=== PATIENT | male | born 1985 | race Caucasian/White ===

== ENCOUNTER → 2017-01-03 | Day surgery (SDC) | payer OTHER ==
[~2017-01-03] VITALS: Ht 182.9 cm; Wt 77.1 kg
[2017-01-03] VITALS (9 sets, daily range): BP systolic 115–141; BP diastolic 67–91
[~2017-01-03] MED LIST: Bacitracin 50000 Units Vial ONE; Bupivacaine w/Epi 0.25% 30ml Vial INJ ONE; D5 1/2NS 1,000 ML IV SCH; DiphenhydrAMINE 50mg/ml Inj IVP PRN; HYDROmorphone 1mg/ml Carpuject SUBQ PRN; Hydromorphone 0.5mg/0.5ml inj IVP PRN; Ketorolac 30mg Inj IV PRN; Ketorolac 30mg Inj ONE; LR 1000ml 1,000 ML IVLG SCH; LR 1000ml ONE; Meperidine 25mg/ml Inj IV PRN; Metoclopramide 10mg/2ml Inj IVP PRN; Midazolam 2mg/2ml Inj IVP PRN; Midazolam 2mg/2ml Inj ONE; NICOTINE PATCH1 EAC5 TD; NS Irrig 1000ml ONE; Norco 5mg/325mg tab ORAL PRN; Propofol 10mg/ml 20ml IV ONE; Ropivacaine 5mg/ml Vial 20ml INJ ONE; Sterile Water Irrig 1000ml IRRIG ONE; Tylenol #3 tab (300mg/30mg) ORAL PRN; ceFAZolin 1gm/50ml Premix 50 ML IV ONE; ceFAZolin sod 1gm in NS 55ml IVPB ONE; celeBREX 200mg Cap **SURGERY PATIENTS ONLY ORAL ONE; fentaNYL 100 mcg/2 mL IV ONE; oxyCONTIN 20mg tab ORAL ONE
--- NOTE | 2017-01-03 07:52 | Pre-Procedure Note/Attestation ---
Pre-Procedure Note/Attestation Complete Prior to Procedure Planned Procedure: left Procedure Narrative: removal of tibia nail Indications for Procedure Pre-Operative Diagnosis: painful hardware left tibia Attestation I attest that I discussed the nature of the procedure; its benefits; risks and complications; and alternatives (and the risks and benefits of such alternatives ), prior to the procedure, with the patient (or the patient's legal claim service representative). I attest that, if there was a reasonable possibility of needing a blood transfusion, the patient (or the patient's legal claim service representative) was given the [facility] standardized written summary, pursuant to the Edvin Darryn Blood Safety Act ([place] Health and Safety Code # 1645, as amended). I attest that I re-evaluated the patient just prior to the surgery and that there has been no change in the patient's H&P, except as documented below: COLTON SHEIKH Jan 03, 2017 07:52
--- NOTE | 2017-01-03 07:53 | Operative Note - PDOC ---
Operative Note Operative Note Pre-op Diagnosis: painful hardware left tibia Procedure: removal of tibia nail Post-op Diagnosis: same as pre-op plus Operative Findings: consistent w/pre-op dx studies Anesthesia: MAC Specimen: none Complications: none Condition: stable Estimated Blood Loss: none Implant(s) used?: COLTON Hernandez Jan 03, 2017 07:53
--- NOTE | 2017-01-03 16:16 | Anethesia Preoperative Eval ---
Anesthesia Pre-op PMH/ROS General Date of Evaluation: Jan 03, 2017 Time of Evaluation: 15:10 Anesthesiologist: Patsy ASA Score: ASA 2 Mallampati Score Class I : Soft palate, uvula, fauces, pillars visible Class II: Soft palate, uvula, fauces visible Class III: Soft palate, base of uvula visible Class IV: Only hard plate visible Mallampati Classification: Class II Surgeon: Efren Diagnosis: Painfull hardwear L tibia Surgical Procedure: Removal of L tibial nail Anesthesia History: none Social History: current smoker, alcohol use - occ., drug use - methamfetamin Family History: no anesthesia problems Allergies: Coded Allergies: No Known Allergies (Unverified , 01/02/17) Medications: see eMAR Past Medical History Cardiovascular: Denies: CAD, HTN, DC, arrhythmia, other, valve dz Pulmonary: Denies: COPD, SAM, asthma, other Gastrointestinal/Genitourinary: Reports: GERD, Denies: CRI, ESRD, other Neurologic/Psychiatric: Reports: depression/anxiety, Denies: CVA, TIA, dementia, other Endocrine: Denies: DM, hypothyroidism, other, steroids HEENT: Denies: BLACKFEET (L), BLACKFEET (R), cataract (L), cataract (R), glaucoma, other Hematology/Immune: Denies: DVT, anemia, bleeding disorder, other Musculoskeletal/Integumentary: Denies: DDD, DJD, OA, RA, edema, other PMH Narrative: as above PSxH Narrative: Bilateral feet correction Sx. ORIF L tibial Fx. Anesthesia Pre-op Phys. Exam Physician Exam Last Vital Signs Date Time Temp Pulse Resp B/P Pulse Ox O2 Delivery O2 Flow Rate FiO2 01/03/17 11:36 98.3 112 18 141/91 97 Room Air Constitutional: NAD Neurologic: CN 2-12 intact Cardiovascular: RRR, no M/R/G Respiratory: CTA Gastrointestinal: S/NT/ND Airway Exam Mallampati Score: Class II MO: full Neck: flexible ROM: full Teeth: intact Dentures: no lower, no upper Anesthesia Pre-op A/P Labs see chart Studies Pre-op Studies: EKG - NSR Risk Assessment & Plan Assessment: ASA 2 Plan: GA with LMA L femoral nerve block for p/op pain control Status Change Before Surgery: No Pre-Antibiotics Drug: Ancef 1 gr. Given Within 1 Hr of Incision: Yes Time Given: 15:56 EBONI SKINNER M.D. Jan 03, 2017 16:16
--- NOTE | 2017-01-03 16:54 | Immediate Post-Op Evaluation ---
Immediate Post-Op Evalulation Immediate Post-Op Evalulation Procedure: L tibial nail removal Date of Evaluation: Jan 03, 2017 Time of Evaluation: 16:53 IV Fluids: 1000 Blood Products: none Estimated Blood Loss: min Urinary Output: none Blood Pressure Systolic: 116 Blood Pressure Diastolic: 53 Pulse Rate: 98 Respiratory Rate: 22 O2 Sat by Pulse Oximetry: 99 Temperature (Fahrenheit): 97.7 Pain Score (1-10): 2 Nausea: No Vomiting: No Complications none Patient Status: reacts, patent, none Hydration Status: adequate EBONI SKINNER M.D. Jan 03, 2017 16:54
--- NOTE | 2017-01-03 17:08 | 48 Hour Post Anesthesia Eval ---
Post Anesthesia Evaluation Procedure: L tibial nail removal Date of Evaluation: Jan 03, 2017 Time of Evaluation: 17:07 Blood Pressure Systolic: 118 0: 67 Pulse Rate: 86 Respiratory Rate: 24 Temperature (Fahrenheit): 97.6 O2 Sat by Pulse Oximetry: 99 Airway: patent Nausea: No Vomiting: No Pain Intensity: 3 Hydration Status: adequate Cardiopulmonary Status: stable Mental Status/LOC: patient returned to baseline Follow-up Care/Observations: n/a Post-Anesthesia Complications: none Follow-up care needed: ready to discharge EBONI SKINNER M.D. Jan 03, 2017 17:08
--- NOTE | 2017-01-04 02:38 | Operative Note - Dictated ---
DATE OF OPERATION: 01/03/2017 PREOPERATIVE DIAGNOSES: 1. Status post open reduction and internal fixation of left tibial shaft fracture. 2. Painful left tibial hardware. POSTOPERATIVE DIAGNOSES: 1. Status post open reduction and internal fixation of left tibial shaft fracture. 2. Painful left tibial hardware. PROCEDURES: Removal of left tibial nail and multiple locking screws. SURGEON: Haroon Schwartz M.D. ANESTHESIA: General. INDICATION FOR PROCEDURE: The patient is a pleasant gentleman, who underwent open reduction and internal fixation of left tibial shaft fracture. He has some anterior knee pain and there is some knee pain along the distal locking and proximal locking screws. He elected to remove the hardware. Risks, limitations, expectations, and complications of the procedure were discussed in detail including continued pain, need for future surgery, risk of anesthesia, and medical complications. DESCRIPTION OF PROCEDURE: An informed consent was obtained. The patient was brought in to the operative room and placed under general anesthesia. A femoral adductor block was placed. The patient was turned to the left proximal thigh. Left leg was prepped and draped in a sterile manner. Time-out was performed. Distal medial skin incision was made and distal femur was removed. At this point, the proximal screws were identified and 2 to 3 proximal screws were removed. Once that was done, medial skin incision was then made. The split along the patella time-out was performed. Proximal tibial nail was visualized. The tibial nail extractor was then placed and the tibial nail was then extracted along with 3 proximal locking screws. Once that was done, the knee was copiously irrigated. The arthrotomy sites were closed with 0 Vicryl, 2-0 Vicryl, and 3-0 Monocryl sutures. Percutaneous sites where the screws were removed finally closed with 3-0 Monocryl sutures. Compression dressing was applied. The patient was awoken and taken to the recovery room with stable signs. ESTIMATED BLOOD LOSS: Minimal. COMPLICATIONS: None. SPECIMENS: None. IMPLANTS: tibial nail and 4 distal locking screws. Haroon Schwartz M.D. DR: JAVIER JOB#: [id number] CC:
--- NOTE | 2017-01-04 09:22 | Diagnostic Imaging Report ---
Indication: PAIN, status post tibial hardware removal Technique: Digital intraoperative images Comparison: None Findings: Intraoperative images demonstrate surgical hardware within the proximal tibia and healed midshaft fracture Impression: Intraoperative imaging, as described
== END | disposition home or self-care (01) ==
LOC: SUR 07:10
DX: Z47.2 Encounter for removal of internal fixation device (principal); K21.9 Gastro-esophageal reflux disease without esophagitis; F32.9 Major depressive disorder, single episode, unspecified; F41.9 Anxiety disorder, unspecified; Z87.891 Personal history of nicotine dependence
CPT/HCPCS: 20680; 73590; 76000; J0690; J1885; J2250; J2405; J2704; J2795; J3010; J7120; 94003; 94150

== ENCOUNTER 2017-01-22 15:12 | Emergency (ER) | payer OTHER ==
[~2017-01-22] VITALS: Ht 182.9 cm; Wt 75.7 kg
[~2017-01-22 15:12] MED LIST changes: -Bacitracin 50000 Units Vial ONE; -Bupivacaine w/Epi 0.25% 30ml Vial INJ ONE; -D5 1/2NS 1,000 ML IV SCH; -DiphenhydrAMINE 50mg/ml Inj IVP PRN; -HYDROmorphone 1mg/ml Carpuject SUBQ PRN; -Hydromorphone 0.5mg/0.5ml inj IVP PRN; -Ketorolac 30mg Inj IV PRN; -Ketorolac 30mg Inj ONE; -LR 1000ml 1,000 ML IVLG SCH; -LR 1000ml ONE; -Meperidine 25mg/ml Inj IV PRN; -Metoclopramide 10mg/2ml Inj IVP PRN; -Midazolam 2mg/2ml Inj IVP PRN; -Midazolam 2mg/2ml Inj ONE; -NS Irrig 1000ml ONE; -Norco 5mg/325mg tab ORAL PRN; -Propofol 10mg/ml 20ml IV ONE; -Ropivacaine 5mg/ml Vial 20ml INJ ONE; -Sterile Water Irrig 1000ml IRRIG ONE; -Tylenol #3 tab (300mg/30mg) ORAL PRN; -ceFAZolin 1gm/50ml Premix 50 ML IV ONE; -ceFAZolin sod 1gm in NS 55ml IVPB ONE; -celeBREX 200mg Cap **SURGERY PATIENTS ONLY ORAL ONE; -fentaNYL 100 mcg/2 mL IV ONE; -oxyCONTIN 20mg tab ORAL ONE
[2017-01-22 15:35] VITALS: BP 111/71
[2017-01-22] MEDS ORDERED: Ketorolac 30mg Inj IV ONE (15:45)
[2017-01-22 16:09] LABS: BASOPHILS % (AUTO) 0.5 % (0.0-2.0); EOSINOPHILS % (AUTO) 1.1 % (0.0-3.0); LYMPHOCYTES % (AUTO) 12.8 % (20.0-45.0); MEAN CORPUSCULAR HEMOGLOBIN 27.9 PG (27.0-31.0); MEAN CORPUSCULAR HGB CONC 32.9 G/DL (32.0-36.0); MEAN CORPUSCULAR VOLUME 85 FL (80-99); MEAN PLATELET VOLUME 8.2 FL (6.5-10.1); NEUTROPHILS % (AUTO) 80.5 % (45.0-75.0); PLATELET COUNT 190 K/UL (150-450); RED BLOOD COUNT 4.69 M/UL (4.70-6.10); RED CELL DISTRIBUTION WIDTH 11.8 % (11.6-14.8); WHITE BLOOD COUNT 8.4 K/UL (4.8-10.8)
[2017-01-22 16:25] LABS: ALANINE AMINOTRANSFERASE 11 U/L (3-41); ALBUMIN/GLOBULIN RATIO 1.1 (1.0-2.7); ANION GAP 13 (5-15); ASPARTATE AMINO TRANSFERASE 12 U/L (5-40); CALCIUM 9.2 mg/dL (8.6-10.2); CARBON DIOXIDE 29 mEQ/L (20-30); CHLORIDE 97 mEQ/L (98-107); GLOMERULAR FILTRATION RATE > 60 mL/min (>60); HEMOLYSIS 1; POTASSIUM 4.1 mEQ/L (3.4-4.9); SODIUM 139 mEQ/L (135-145); TOTAL PROTEIN 7.7 g/dL (6.6-8.7)
[2017-01-22] MEDS ORDERED: KEFLEX500 MG ORAL (17:02)
[2017-01-22 17:12] VITALS: BP 111/71
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
== END 2017-01-22 17:20 | disposition home or self-care (01) ==
LOC: EMR 16:50
DX: T81.4XXA Infection following a procedure, initial encounter (principal); Y83.9 Surgical procedure, unspecified as the cause of abnormal reaction of the patient, or of later complication, without mention of misadventure at the time of the procedure
CPT/HCPCS: 36415; 80053; 80300; 85025; 96374; 96375; 99284; J1885; J7040